=== PATIENT | female | born 1965 | race Caucasian/White ===

== ENCOUNTER 2017-08-03 05:53 | Day surgery (SDC) | payer BC ==
[~2017-08-03] VITALS: Ht 167.6 cm; Wt 105.0 kg
--- NOTE | ~2017-08-03 | OR ---
PATIENT'S NAME: TREVIN MCALLISTER [facility] AGE: 52 Y [address] ROOM: [place] [id number] [place] [facility] [place]: 08/03/2017 OR/Procedure Report DISCHARGE DATE: FAMILY PHYSICIAN: Oliverio Brand ATTENDING PHYSICIAN: Aime Bernal SURGEON: Aime Bernal MD BILL HIKER: DATE OF PROCEDURE: 08/03/2017 PREOPERATIVE DIAGNOSIS: Periurethral mass. POSTOPERATIVE DIAGNOSIS: Periurethral mass with pathology pending with no obvious communication with the urethra. PROCEDURE: 1. Cystoscopy. 2. Excision of periurethral mass. ANESTHESIA: General by laryngeal airway. INDICATION: This is a 52-year-old lady with an approximately 1.5 cm mass at the left side of her meatus from the 3 o'clock to 6 o'clock position. It drains purulent material. Other than the odor and the discharge, she has not had a lot of symptoms. She is about a year out from a urethral suspension. She has done well from that standpoint. 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 The MRI scan does not demonstrate any definite connection with the urethra. She presents at this time for cystoscopy and excision. DESCRIPTION OF PROCEDURE: Having obtained her informed consent, the patient was taken to the operating room. She was prepped and draped sterilely and in lithotomy position. General anesthesia was administered. A 21-Tamazight cystoscope was assembled and guided into the urethra. The course of the urethra was unremarkable. Importantly, with compression, I see purulence oozing out of the cyst on the vaginal side. There is no purulence expressed per urethra. I cannot appreciate any os. The remainder of the bladder is unremarkable on careful cystoscopic examination. The vaginal mucosa overlying the cyst was infiltrated with 1% lidocaine with epinephrine. A horseshoe incision was made over the cyst and a vaginal flap was dropped down. I then dissected the cyst out in its entirety. Consistent with the MRI and the cystoscopy, I find no communication with the urethra. Once the entire cyst is confirmed, to confirm that, I placed her catheter at the level of the bladder neck, occluded the bladder neck and injected PATIENT'S NAME: TREVIN MCALLISTER [facility] AGE: 52 Y [address] ROOM: [place], [place] [address] [place] [facility] [place]: 08/03/2017 OR/Procedure Report DISCHARGE DATE: FAMILY PHYSICIAN: Oliverio Brand ATTENDING PHYSICIAN: Aime Bernal antibiotic solution under pressure. There was no leakage from the urethra other than at the meatus. Further antibiotic irrigation was undertaken. The wound was then closed in layers. Specifically, I closed the periurethral tissue using 3-0 Vicryl. I then closed the vaginal mucosa with a running locking 2-0 Vicryl. The Marcum catheter was left to drainage. The patient tolerated the procedure well. Blood loss was minimal. The cyst was sent to Pathology. The patient returned to the outpatient recovery awake and stable condition. AIME BERNAL MD SF[facility]/modl /[id number] CC: SHAYNA Bartlett MD d: 08/03/17 1120 t: 08/05/17 0915, OPERATIVE SUMMARY
[~2017-08-03 05:53] MED LIST: DETROL LA EXTEND4 MG PO; LIPITOR20 M1 PO; NORCO 5-325 TA1 EACH PO; THERA-VITE W/ B1 TAB PO
[2017-08-03 07:21] LABS: BASOPHIL # 0.1 K/uL (0.0-0.2); BASOPHIL % 0.5 %; EOSINOPHIL # 0.2 K/uL (0.0-0.5); EOSINOPHIL % 1.7 %; HEMATOCRIT 37.1 % (33.0-46.0); HEMOGLOBIN 12.2 g/dL (10.0-15.0); IMMATURE GRANULOCYTE % 0.3 %; LYMPHOCYTE % 32.3 %; MCHC 32.9 gm/dL (32.0-36.5); MCV 91.4 fl (83.0-98.0); MONOCYTE # 0.5 K/uL (0.0-1.0); MONOCYTE % 5.5 %; MPV 8.9 fl (9.4-12.4); NEUTROPHIL # (ANC) 5.5 K/uL (1.8-7.8); NEUTROPHIL % 59.7 %; NRBC % 0 /100WBC (0-0.00); PLATELET COUNT 377 K/uL (150-450); RBC 4.06 M/uL (3.50-5.50); RDW-CV 12.8 % (11.9-14.6); WBC 9.3 K/uL (4.0-11.0)
[2017-08-03 07:22] LABS: ALK PHOS 87 IU/L (33-138); ALT 19 IU/L (12-78); AST 9 IU/L (10-40); BLOOD UREA NITROGEN 13 mg/dL (6-24); CALCIUM 9.2 mg/dL (8.5-10.5); CHLORIDE 105 mMol/L (96-110); CO2 29 mMol/L (22-32); CREATININE 0.7 mg/dL (0.5-1.1); SODIUM 140 mMol/L (135-145); TOTAL BILIRUBIN 0.4 mg/dL (0.0-1.5); TOTAL PROTEIN 8.4 g/dL (6.0-8.4)
== END 2017-08-03 10:05 | disposition disaster alternative care site (69) ==
LOC: GSDC 05:53
PROVIDERS: Urology
PROC: 0TJB8ZZ Inspection of Bladder, Via Natural or Artificial Opening Endoscopic (ICD-10-PCS; principal; 2017-08-03)
PROC: 0UBG0ZZ Excision of Vagina, Open Approach (ICD-10-PCS; principal; 2017-08-03)
DX: N89.8 Other specified noninflammatory disorders of vagina (principal); E78.00 Pure hypercholesterolemia, unspecified; M19.90 Unspecified osteoarthritis, unspecified site; Z87.891 Personal history of nicotine dependence; Z98.51 Tubal ligation status; Z98.890 Other specified postprocedural states
CPT/HCPCS: J1956; J2001; J3010; J7030